=== PATIENT | male | born 1985 | race Caucasian/White ===

== ENCOUNTER 2018-08-05 10:30 | Emergency (ER) | payer MEDICAID, OTHER ==
[2018-08-05 10:37] VITALS: TEMP 98.8
[2018-08-05 11:01] LABS: BASO % 0.5 % (0.0-2.0); EOS % 0.3 % (0.0-4.0); HEMOGLOBIN 13.9 g/dL (12.0-18.0); LYMPH # 2.2 K/uL (1.0-4.3); LYMPH % 30.1 % (20.0-40.0); MEAN CELL VOLUME 84.6 fL (80.0-94.0); MEAN CORPUSCULAR HEMOGLOBIN 28.6 pg (27.0-31.0); MEAN CORPUSCULAR HGB CONC 33.8 g/dL (33.0-37.0); MEAN PLATELET VOLUME 8.9 fL (7.2-11.7); MONO # 0.6 K/uL (0.0-0.8); MONO % 7.7 % (0.0-10.0); NEUT # 4.6 K/uL (1.8-7.0); NEUT % 61.4 % (50.0-75.0); NRBC % 0.1 % (0.0-2.0); RBC 4.87 Mil/uL (4.40-5.90); RED CELL DISTRIBUTION WIDTH 13.7 % (11.5-14.5); WHITE BLOOD COUNT 7.5 K/uL (4.8-10.8)
[2018-08-05 11:11] LABS: SQUAMOUS EPITHIAL < 1 /hpf (0-5); URINE BILIRUBIN NEGATIVE (NEGATIVE); URINE BLOOD NEGATIVE (NEGATIVE); URINE CLARITY Clear (Clear); URINE COLOR Yellow (YELLOW); URINE GLUCOSE (UA) NORMAL (Normal); URINE LEUKOCYTE ESTERASE NEG Leu/uL (Negative); URINE PROTEIN NEGATIVE (NEGATIVE); URINE UROBILINOGEN NORMAL mg/dL (0.2-1.0)
[2018-08-05 11:19] LABS: ALB/GLOB RATIO 1.5 (1.0-2.1); ALBUMIN 4.6 g/dL (3.5-5.0); ALT/SGPT 10 U/L (21-72); AST/SGOT 24 U/L (17-59); BLOOD UREA NITROGEN 16 mg/dL (9-20); CALCIUM 9.8 mg/dl (8.6-10.4); GFR NON-AFRICAN AMERICAN > 60
--- NOTE | 2018-08-05 11:24 | C.PDOC ---
History Of Present Illness 32 year old male with history of substance abuse presents to the ED for detoxification. Patient was prescreened for detox. Reports he last snorted heroin and xanax last night. Denies any SI/HI, auditory or visual hallucinations, nausea, vomiting, or any other symptoms. Time Seen by Provider: 08/05/18 10:41 Chief Complaint (Nursing): Substance Abuse History Per: Patient History/Exam Limitations: no limitations Onset/Duration Of Symptoms: Hrs Current Symptoms Are (Timing): Gone Suicide/Self Injury Attempted (Context): None Modifying Factor(s): Other (Heroin, xanax) Associated Symptoms: denies: Suicidal Thoughts, Suicidal Plan Past Medical History Reviewed: Historical Data, Nursing Documentation, Vital Signs Vital Signs: Last Vital Signs Temp 98.8 F 08/05/18 10:33 Pulse 97 H 08/05/18 10:33 Resp 20 08/05/18 10:33 BP 112/77 08/05/18 10:33 Pulse Ox 99 08/05/18 10:33 - Medical History PMH: Anxiety, Depression, Post Traumatic Stress Disorder Denies: Diabetes, Hepatitis, HIV, HTN, Chronic Kidney Disease, Seizures, Sexually Transmitted Disease Surgical History: No Surg Hx - [facility] Procedures GROUP PSYCHOTHERAPY (12/18/16) INDIV PSYCHOTHERAPY FOR SUBSTANCE ABUSE TREATMENT, SUPPORT (12/18/16) INDIV PSYCHOTHERAPY FOR SUBSTANCE ABUSE, COGNITIV BEHAVIORAL (12/18/16) INDIV PSYCHOTHERAPY FOR SUBSTANCE ABUSE, PSYCHOEDUCATION (12/18/16) MEDICATION MANAGEMENT (12/18/16) Family History: States: No Known Family Hx - Social History Hx Alcohol Use: Yes Hx Substance Use: Yes - Immunization History Hx Tetanus Toxoid Vaccination: No Hx Influenza Vaccination: No Hx Pneumococcal Vaccination: No Review Of Systems Except As Marked, All Systems Reviewed And Found Negative. Constitutional: Negative for: Fever, Chills Cardiovascular: Negative for: Chest Pain Respiratory: Negative for: Shortness of Breath Gastrointestinal: Negative for: Nausea, Vomiting Neurological: Negative for: Headache Psych: Negative for: Suicidal ideation Physical Exam - Physical Exam Appears: Non-toxic, No Acute Distress Skin: Warm, Dry Head: Normacephalic Eye(s): bilateral: Normal Inspection Nose: Normal Oral Mucosa: Moist Neck: Supple Chest: Symmetrical Cardiovascular: Rhythm Regular Respiratory: Normal Breath Sounds, No Rales, No Rhonchi, No Wheezing Gastrointestinal/Abdominal: Soft, No Tenderness Neurological/Psych: Oriented x3, Normal Speech Gait: Steady ED Course And Treatment - Laboratory Results Result Diagrams: 08/05/18 10:57 08/05/18 10:57 Lab Results: Urine Color Yellow (YELLOW) 08/05/18 10:57 Urine Clarity Clear (Clear) 08/05/18 10:57 Urine pH 5.0 (5.0-8.0) 08/05/18 10:57 Ur Specific [place] 1.028 (1.003-1.030) 08/05/18 10:57 Urine Protein Negative mg/dL (NEGATIVE) 08/05/18 10:57 Urine Glucose (UA) Normal mg/dL (Normal) 08/05/18 10:57 Urine Ketones Negative mg/dL (NEGATIVE) 08/05/18 10:57 Urine Blood Negative (NEGATIVE) 08/05/18 10:57 Urine Nitrate Negative (NEGATIVE) 08/05/18 10:57 Urine Bilirubin Negative (NEGATIVE) 08/05/18 10:57 Urine Urobilinogen Normal mg/dL (0.2-1.0) 08/05/18 10:57 Ur Leukocyte Esterase Neg Ayo/uL (Negative) 08/05/18 10:57 Urine WBC (Auto) < 1 /hpf (0-5) 08/05/18 10:57 Urine RBC (Auto) < 1 /hpf (0-3) 08/05/18 10:57 Ur Squamous Epith Cells < 1 /hpf (0-5) 08/05/18 10:57 Lab Interpretation: Normal O2 Sat by Pulse Oximetry: 99 (RA) Pulse Ox Interpretation: Normal Progress Note: Case discussed with greenhouse worker who will evaluated after labs resulted. Cleared for crisis evaluation. Patient evaluated by greenhouse worker and request discharge to outpatient detox Medical Decision Making Medical Decision Making: Plan - Bloodwork - UA Disposition - Disposition Referrals: Alcoholics Anonymous [Outside] [facility] [Outside] [facility] [Outside] [facility] [Outside] Disposition: HOME/ ROUTINE Disposition Time: 13:00 Condition: STABLE Additional Instructions: Follow up with your PMD for further evaluation Follow up with outpatient detox programs Instructions: Polysubstance Abuse Forms: [facility] (Uzbek) - POA Present On Arrival: None - Clinical Impression Clinical Impression: Drug abuse - PA / [employer] / Resident Statement MD/DO has reviewed & agrees with the documentation as recorded. - Scribe Statement The provider has reviewed the documentation as recorded by the Scribe Gwendolyn Tapia All medical record entries made by the Flavia were at my direction and personally dictated by me. I have reviewed the chart and agree that the record accurately reflects my personal performance of the history, physical exam, medical decision making, and the department course for this patient. I have also personally directed, reviewed, and agree with the discharge instructions and disposition.
[2018-08-05 11:37] LABS: BENZODIAZEPINES, UR NEGATIVE (NEGATIVE); OPIATES, UR NEGATIVE (NEGATIVE); PHENCYCLIDINE, UR NEGATIVE (NEGATIVE)
[2018-08-05 11:52] LABS: BARBITURATES, UR POSITIVE (NEGATIVE)
[2018-08-05 13:07] VITALS: BP 110/70; PULSE 82; RESP 18
[2018-08-05 17:55] VITALS: O2SAT 99
== END 2018-08-05 13:07 | disposition home or self-care (01) ==
LOC: C.ER 10:30
DX: F19.10 Other psychoactive substance abuse, uncomplicated (principal)